=== PATIENT | female | born 1955 ===

== ENCOUNTER 2022-09-20 13:24 | Outpatient (CLI) | payer MEDICARE | END 2022-09-20 13:25 | disposition home or self-care (01) | LOC: CSHMAMMO 13:24 | PROVIDERS: ATTEND Registered Nurse | DX: Z12.31 Encounter for screening mammogram for malignant neoplasm of breast (principal); Z13.820 Encounter for screening for osteoporosis; Z78.0 Asymptomatic menopausal state | CPT/HCPCS: 77063; 77067; 77080 ==